=== PATIENT | female | born 1945 | race Caucasian/White ===

== ENCOUNTER → 2020-07-29 | Outpatient (REF) | payer BC ==
[~2020-07-29] MED LIST: BUPR300T92; METO1TAB32 PO; XARE20TA
== END ==
LOC: M SMT 17:06
PROVIDERS: ATTEND Urology
DX: C67.9 Malignant neoplasm of bladder, unspecified (principal)

== ENCOUNTER → 2020-09-12 | Outpatient (REF) | payer BC | LOC: M SMT 12:48 | PROVIDERS: ATTEND Urology | DX: Z85.51 Personal history of malignant neoplasm of bladder (principal) ==

== ENCOUNTER → 2024-07-12 | Outpatient (REF) | payer BC ==
[~2024-07-12] MED LIST changes: +BUPR-766 PO; -BUPR300T92; -XARE20TA; +XARE20TA PO
== END ==
LOC: M LAB REF 16:52
PROVIDERS: ATTEND Internal Medicine Gastroenterology
DX: A04.71 Enterocolitis due to Clostridium difficile, recurrent (principal)